=== PATIENT | male | born 1980 | race Caucasian/White ===

== ENCOUNTER 2023-04-08 15:28 | Emergency (ER) | payer BC, SELFPAY ==
[2023-04-08 15:41] VITALS: BP 150/98; PULSE 88; RESP 20; TEMP 36.6; O2SAT 98; BMI 32.5
--- NOTE | 2023-04-08 15:54 | ED.EAR1 ---
HPI - Ear Problem General Chief complaint: Ear Stated complaint: EAR INFECTION/SINUS PRESSURE Time Seen by Provider: 04/08/23 15:46 Source: patient Mode of arrival: walk-in Limitations: no limitations History of Present Illness HPI Narrative: Patient is a 42-year-old male who presents to the emergency department for a one-week history of left ear pain, sinus pressure and pain. He has had no objective fevers, vomiting. He reports some cough. No significant sputum production. He reports significant congestion in the nose. No medications taken prior to arrival. His PCP recently left the office. Related Data Previous Rx's Medication Instructions Recorded amoxicillin 875 mg-potassium 1 tab PO Q12H #20 tabs 04/08/23 clavulanate 125 mg tablet aavxtsdpbzccjjd-rcnybmxrodbxaby-QZ 10 ml PO Q6H PRN cold symptoms 04/08/23 2 mg-30 mg-10 mg/5 mL oral syrup #200 mL (Bromfed DM) methylprednisolone 4 mg tablets in See Rx Instructions .Route 04/08/23 a dose pack (Medrol (Justyn)) .COMPLEX #21 ea Allergies Allergy/AdvReac Type Severity Reaction Status Date / Time bacitracin Allergy Intermediate Verified 04/08/23 15:45 [From Neosporin Plus] calamine Allergy Intermediate Verified 04/08/23 15:45 lidocaine Allergy Intermediate Verified 04/08/23 15:45 [From Neosporin Plus] neomycin Allergy Intermediate Verified 04/08/23 15:45 [From Neosporin Plus] polymyxin B Allergy Intermediate Verified 04/08/23 15:45 [From Neosporin Plus] pramoxine Allergy Intermediate Verified 04/08/23 15:45 [From Neosporin Plus] Review of Systems ROS Constitutional Denies: fever or chills Ears, nose, mouth, and throat Reports: ear pain and nasal congestion; Denies: throat pain or ear discharge Cardiovascular Denies: chest pain Respiratory Reports: cough; Denies: shortness of breath Gastrointestinal Denies: nausea or vomiting Musculoskeletal Denies: back pain Integumentary/Breast Denies: rash Neurological Reports: headache Exam Narrative Exam Narrative: Gen.: Awake, alert, in no distress Head: Normocephalic, atraumatic ENT: Moist mucous membranes, left tympanic membrane is dull and right tympanic membrane is bulging. No erythema or injection of the ears. No pharyngeal erythema. Clear speech Respiratory: No respiratory distress, lungs clear bilaterally Cardio: Regular rate and rhythm Extremities: Moves extremities equally Psych: Normal mood and affect Neuro: No focal neuro deficit Skin: Warm, dry, intact Constitutional Vital Signs, click to edit/add: Last Vital Signs Temp 98 F 04/08/23 15:41 Pulse 88 04/08/23 15:41 Resp 20 04/08/23 15:41 BP 150/98 H 04/08/23 15:41 Pulse Ox 98 04/08/23 15:41 O2 Del Method Room Air 04/08/23 15:41 Course Vital Signs Vital signs: Vital Signs Temperature 98 F 04/08/23 15:41 Pulse Rate 88 04/08/23 15:41 Respiratory Rate 20 04/08/23 15:41 Blood Pressure 150/98 H 04/08/23 15:41 Pulse Oximetry 98 04/08/23 15:41 Oxygen Delivery Method Room Air 04/08/23 15:41 Temperature 98 F 04/08/23 15:41 Pulse Rate 88 04/08/23 15:41 Respiratory Rate 20 04/08/23 15:41 Blood Pressure 150/98 H 04/08/23 15:41 Pulse Oximetry 98 04/08/23 15:41 Oxygen Delivery Method Room Air 04/08/23 15:41 Medical Decision Making MDM Narrative Medical decision making narrative: Left ear pain. Patient treated based on the duration of symptoms longer than one week with Augmentin for sinusitis as well as Bromfed-DM and Medrol Dosepak. Follow-up with PCP and return to the Emergency Room if symptoms change or worsen. Discharge Plan Discharge Chief Complaint: Ear Clinical Impression: Sinusitis Patient Disposition: Home, Self-Care Time of Disposition Decision: 15:55 Condition: Good Mode of Transportation: Private Vehicle Prescriptions / Home Meds: New methylprednisolone [Medrol (Justyn)] 4 mg tablets,dose pack See Rx Instructions .ROUTE .COMPLEX Qty: 21 0RF Rx Instructions: Taper as directed lwskpvmcrgftari-pyqcselto-ZY [Bromfed DM] 2-30-10 mg/5 mL syrup 10 ml PO Q6H PRN (Reason: cold symptoms) Qty: 200 0RF amoxicillin-pot clavulanate 875-125 mg tablet 1 tab PO Q12H Qty: 20 0RF Instructions: Sinusitis (ED) Stand Alone Forms: Portal Instructions Referrals: Physician,Non-Staff, MD [Primary Care Provider] - 1 week Discharge Date/Time: 04/08/23 16:25
--- NOTE | 2023-04-08 16:22 | PC.NURSE ---
Pt states that the pain started in left ear but it is now starting in the right ear. pt has also had sinus congestion and issues with this for about a week now. Pt states long history of this and has been on antibiotics a lot per pt last year for the same things.
== END 2023-04-08 16:25 | disposition home or self-care (01) ==
PROVIDERS: Emergency Provider Emergency Medicine
DX: J32.9 Chronic sinusitis, unspecified (principal)
CPT/HCPCS: 99283

== ENCOUNTER 2025-03-25 14:05 | Emergency (ER) | payer BC, SELFPAY ==
[2025-03-25 14:08] VITALS: BP 155/98; PULSE 101; TEMP 36.8; O2SAT 95; BMI 33.4
--- NOTE | 2025-03-25 14:17 | ED.URI1 ---
HPI - URI/Sore Throat General Chief Complaint: Upper Respiratory Infection Stated Complaint: SORE THROAT Time Seen by Provider: 03/25/25 14:09 Source: patient Limitations: no limitations History of Present Illness MD elicited complaint: Reports fever, sore throat, nasal congestion and sinus pain Pertinent past history: Reports sinusitis Onset (ago): day(s) (10) Consistency: Reports constant Severity: moderate Description of mucous: Reports yellow Able to tolerate fluids by mouth: Yes Relieving factors: Reports nothing Associated symptoms: Reports fever, headache, nasal congestion and sore throat Treatments prior to arrival: Reports acetaminophen and ibuprofen Related Data Home Medications ?Medication ?Instructions ?Recorded ?Confirmed losartan 100 mg tablet 100 mg PO 03/25/25 Previous Rx's ?Medication ?Instructions ?Recorded amoxicillin 875 mg-potassium 1 tab PO Q12H #20 tabs 04/08/23 clavulanate 125 mg tablet Held on 03/25/25. Instructions: dc sxqqmyibiqcryfx-wklzzmyjvioncwz-KL 10 ml PO Q6H PRN cold symptoms 04/08/23 2 mg-30 mg-10 mg/5 mL oral syrup #200 mL (Bromfed DM) Held on 03/25/25. Instructions: dc methylprednisolone 4 mg tablets in See Rx Instructions .Route 04/08/23 a dose pack (Medrol (Jusytn)) .COMPLEX #21 ea Held on 03/25/25. Instructions: dc amoxicillin 875 mg-potassium 1 tab PO BID 10 days #20 tabs 03/25/25 clavulanate 125 mg tablet Allergies Allergy/AdvReac Type Severity Reaction Status Date / Time bacitracin (From Neosporin Allergy Intermediate Verified 04/08/23 15:45 Plus) calamine Allergy Intermediate Verified 04/08/23 15:45 lidocaine (From Neosporin Allergy Intermediate Verified 04/08/23 15:45 Plus) neomycin (From Neosporin Allergy Intermediate Verified 04/08/23 15:45 Plus) polymyxin B (From Neosporin Allergy Intermediate Verified 04/08/23 15:45 Plus) pramoxine (From Neosporin Allergy Intermediate Verified 04/08/23 15:45 Plus) PFSH PFSH Social History Little interest or pleasure in doing things: not at all Feeling down, depressed, or hopeless: not at all Exam Narrative Exam Narrative: VITAL SIGNS: Vitals during ED course were reviewed and are as charted. Constitutional:? No acute distress, Non-toxic appearance HENT: Normocephalic, Atraumatic, Bilateral external ears normal, Oropharynx moist, No oral exudates, Nose congested and red. mild pharyngeal erythema, no tonsillary exudate, TM bulging bilaterally, worse on right, slightly on right side. Patient does have tenderness on percussion of the sinuses in the frontal and maxillary area. Lymphadenopathy. Eyes:? Pupils equal and reactive to light, EOMI, Conjunctiva normal, No discharge. Neck: Normal range of motion, No tenderness, Supple Cardiovascular:? Normal heart rate, Normal rhythm, No murmurs,? Pulmonary/Chest:? Normal breath sounds, No respiratory distress, No chest tenderness Extremities:?Normal range of motion, Intact distal pulses, No tenderness Neurologic:? Alert & oriented x 3, normal conversation and appropriate interaction, able to follow simple commands, normal ambulation and phonation, no unilateral weakness. Normal motor function, Normal sensory function, Psychiatric:? Affect normal, Judgement normal, Mood normal Constitutional Vital Signs, click to edit/add: Last Vital Signs Temp 98.2 F 03/25/25 14:08 Pulse 101 H 03/25/25 14:08 Resp 18 03/25/25 14:08 BP 155/98 H 03/25/25 14:08 Pulse Ox 95 03/25/25 14:08 O2 Del Method Room Air 03/25/25 14:08 Course Vital Signs Vital signs: Vital Signs Temperature 98.2 F 03/25/25 14:08 Pulse Rate 101 H 03/25/25 14:08 Respiratory Rate 18 03/25/25 14:08 Blood Pressure 155/98 H 03/25/25 14:08 Pulse Oximetry 95 03/25/25 14:08 Oxygen Delivery Method Room Air 03/25/25 14:08 Temperature 98.2 F 03/25/25 14:08 Pulse Rate 101 H 03/25/25 14:08 Respiratory Rate 18 03/25/25 14:08 Blood Pressure 155/98 H 03/25/25 14:08 Pulse Oximetry 95 03/25/25 14:08 Oxygen Delivery Method Room Air 03/25/25 14:08 MDM - URI/Sore Throat MDM Narrative Medical decision making narrative: Patient presents to the ED with a complaint of sinus type pain nasal discharge sore throat for about 10 days. He states that on Wednesday and Wednesday however he felt he developed a fever. He felt chills and sweats however he never took his temperature. He has had thick yellowish nasal discharge. He has some pressure in his ears. No neck stiffness. He does have a cough and does cough up yellowish sputum he does not have shortness of breath or chest pain. Patient does have a history of sinusitis and actually sees an ENT physician. His next follow-up with her is next week. On exam patient has serous fluid behind both TMs the right TM however is erythematous. Nasal passages are red boggy congested. Pharynx is erythematous some yellowish drainage in the posterior pharynx. Tenderness along sinuses on the maxillary and facial area. No nuchal rigidity lymphadenopathy heart and lung sounds are unremarkable. Patient replaced on Augmentin based on his symptoms and the length of his symptoms I believe he is a good candidate for antibiotic treatment. Due to the recurrent nature of the patient's symptoms however strongly advised to keep his appointment with his ENT doctor. He is agreeable to this plan of care. He will use Tylenol Motrin for pain as needed with cffk-gsp-jslkfzk instructions. He will return with any worsening or concerning symptoms. Differential Diagnosis Differential diagnosis: Likely upper respiratory infection, otitis media, sinusitis, viral infection, bronchitis, influenza and pharyngitis Medical Records Attestation: I reviewed the patient's medical records. Discharge Plan Discharge Chief Complaint: Upper Respiratory Infection Clinical Impression: Sinusitis, Acute serous otitis media Patient Disposition: Home, Self-Care Time of Disposition Decision: 14:18 Condition: Good Prescriptions / Home Meds: New amoxicillin-pot clavulanate 875-125 mg tablet 1 tab PO BID 10 Days Qty: 20 0RF No Action methylprednisolone [Medrol (Justyn)] 4 mg tablets,dose pack See Rx Instructions .ROUTE .COMPLEX Qty: 21 0RF Rx Instructions: Taper as directed kqsrqkqawgoxizi-psakgklvf-BO [Bromfed DM] 2-30-10 mg/5 mL syrup 10 ml PO Q6H PRN (Reason: cold symptoms) Qty: 200 0RF amoxicillin-pot clavulanate 875-125 mg tablet 1 tab PO Q12H Qty: 20 0RF losartan 100 mg tablet 100 mg PO Print Language: Czech Instructions: Sinusitis (ED) Referrals: SHANA ORLANDO [Primary Care Provider, [employer]] - 1 week Discharge Date/Time: 03/25/25 14:30
== END 2025-03-25 14:30 | disposition home or self-care (01) ==
PROVIDERS: Emergency Provider Student in an Organized Health Care Education/Training Program; PCP Nurse Practitioner
DX: H65.03 Acute serous otitis media, bilateral (principal); J32.9 Chronic sinusitis, unspecified
CPT/HCPCS: 99283